=== PATIENT | female | born 1930 ===

== ENCOUNTER 2017-09-06 15:37 | Inpatient (IN) | payer MEDICARE ==
[2017-09-06] MEDS ORDERED: Lidocaine 2% w Epi 1:100,000 Inj IJ ONE (15:56)
--- NOTE | 2017-09-06 15:58 | ED PDOC ---
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 Patient sustained a laceration above the left eyebrow. Denies recollection of event, dizziness, headache, or chest pain with palpitations. Past Medical History Reviewed: Historical Data, Nursing Documentation, Vital Signs Vital Signs: Last Vital Signs Temp 98.0 F 09/06/17 15:40 Pulse 69 09/06/17 15:40 Resp 16 09/06/17 15:40 BP 141/78 09/06/17 15:40 Pulse Ox 100 09/06/17 15:40 - Medical History PMH: CVA (w/residual right-sided facial droop) - Surgical History Surgical History: No Surg Hx - Family History Family History: States: Unknown Family Hx - Social History Current smoker - smoking cessation education provided: No Alcohol: None Drugs: Cannabis - Allergies Allergies/Adverse Reactions: Allergies Allergy/AdvReac Type Severity Reaction Status Date / Time No Known Allergies Allergy Verified 09/21/16 17:44 Review of Systems ROS Statement: Except As Marked, All Systems Reviewed And Found Negative (As per HPI, otherwise negative) Constitutional: Positive for: Other (Head injury) Cardiovascular: Negative for: Chest Pain, Palpitations Skin: Positive for: Other (Laceration to the left eyebrow) Neurological: Negative for: Headache, Dizziness Physical Exam - Reviewed Nursing Documentation Reviewed: Yes Vital Signs Reviewed: Yes - Physical Exam Appears: Positive for: Non-toxic, No Acute Distress Head Exam: Positive for: ATRAUMATIC (3 cm semilunar laceration noted above the left eyebrow and superficial 0.5 cm laceration to the bridge of the nose. No palpable fracture. ) Skin: Positive for: Normal Color, Warm, Dry Eye Exam: Positive for: Normal appearance, EOMI, PERRL Neck: Positive for: Normal, Painless ROM, Supple Cardiovascular/Chest: Positive for: Regular Rate, Rhythm. Negative for: Murmur Respiratory: Positive for: Normal Breath Sounds (Bilaterally). Negative for: Accessory Muscle Use, Respiratory Distress Back: Positive for: Normal Inspection. Negative for: Vertebral Tenderness, Other (no spinal tenderness or deformity noted) Extremity: Positive for: Normal ROM (Full range of motion). Negative for: Tenderness, Deformity Neurologic/Psych: Positive for: Alert, Oriented (x3). Negative for: Motor/ Sensory Deficits (No focal deficits) - Laboratory Results Result Diagrams: 09/06/17 17:00 09/06/17 16:07 - ECG O2 Sat by Pulse Oximetry: 100 (RA) Pulse Ox Interpretation: Normal Medical Decision Making Medical Decision Making: Time: 1552 Initial impression: Head injury status post fall Initial plan: --EKG --CMP --Urine DIP --CBC w/ diff --Chest x-ray --Head CT --Reevaluation Scribe Attestation: Documented by Tiki Thorne, acting as a scribe for Oscar Walter MD. Provider Scribe Attestation: All medical record entries made by the Scribe were at my direction and personally dictated by me. I have reviewed the chart and agree that the record accurately reflects my personal performance of the history, physical exam, medical decision making, and the department course for this patient. I have also personally directed, reviewed, and agree with the discharge instructions and disposition. Disposition - Clinical Impression Clinical Impression: Facial laceration, Syncope, Dehydration - Patient ED Disposition Is Patient to be Admitted: Yes - Disposition Disposition Time: 17:26 Condition: FAIR Forms: [facility] (Brazilian) - Pt Status Changed To: Hospital Disposition Of: Observation - POA Present On Arrival: None Laceration - Laceration Repair No standard instances Wound Length (In cm): 1.18 in Wound Cleansed With: Sterile Saline Anesthesia: Lidocaine 2%, With Epi Wound Examination: Irrigated With Saline, No FB With Wound Exploration Wound Closure: Suture Suture Technique And Material Used: Interrupted, Nylon (5-0 # 11) Wound Complexity: Simple
[2017-09-06 16:19] LABS: BASO % 0.5 % (0.0-2.0); EOS # 0.1 K/uL (0.0-0.7); EOS % 2.3 % (0.0-4.0); HEMOGLOBIN 10.4 g/dL (12.0-16.0); LYMPH # 1.4 K/uL (1.0-4.3); LYMPH % 22.6 % (20.0-40.0); MEAN CELL VOLUME 97.3 fl (81.0-99.0); MEAN CORPUSCULAR HEMOGLOBIN 31.2 pg (27.0-31.0); MEAN PLATELET VOLUME 9.4 fl (7.2-11.7); MONO # 0.4 K/uL (0.0-0.8); MONO % 6.7 % (0.0-10.0); NEUT # 4.1 K/uL (1.8-7.0); NEUT % 67.9 % (50.0-75.0); RBC 3.35 Mil/uL (3.80-5.20); RED CELL DISTRIBUTION WIDTH 13.4 % (11.5-14.5); WHITE BLOOD COUNT 6.1 K/uL (4.8-10.8)
[2017-09-06 16:48] LABS: ALB/GLOB RATIO 1.2 (1.0-2.1); CALCIUM 9.7 mg/dL (8.4-10.2)
--- NOTE | 2017-09-06 16:51 | RAD ---
HISTORY: cough COMPARISON: No prior. FINDINGS: LUNGS: Limited evaluation of the right apex. No active pulmonary disease. PLEURA: No significant pleural effusion identified, no pneumothorax apparent. CARDIOVASCULAR: Atherosclerotic aortic calcifications. Cardiomediastinal silhouette within normal limits OSSEOUS STRUCTURES: Degenerative changes. VISUALIZED UPPER ABDOMEN: Normal. OTHER FINDINGS: None. IMPRESSION: Limited evaluation of the right apex. No active disease.
[2017-09-06] MEDS ORDERED: Sodium Chloride 0.9% 1,000 ML IV STA (16:53)
--- NOTE | 2017-09-06 17:15 | CT ---
PROCEDURE: CT HEAD WITHOUT CONTRAST. HISTORY: r/o bleed COMPARISON: None available. TECHNIQUE: Axial computed tomography images were obtained through the head/brain without intravenous contrast. Radiation dose: Total exam DLP = 809.29 mGy-cm. This CT exam was performed using one or more of the following dose reduction techniques: Automated exposure control, adjustment of the mA and/or kV according to patient size, and/or use of iterative reconstruction technique. FINDINGS: HEMORRHAGE: No intracranial hemorrhage. BRAIN: There are mild chronic microangiopathic changes. There is no mass, mass effect or abnormal extra-axial fluid collection. There is no territorial infarction. There are coarse atherosclerotic calcifications in the cavernous carotid arteries. VENTRICLES: There is mild age-related global parenchymal volume loss and proportionate enlargement of the ventricles and cortical sulci the. CALVARIUM: There is no calvarial fracture or extracranial soft tissue swelling. There is severe hyperostosis frontalis interna. PARANASAL SINUSES: Predominantly clear. MASTOID AIR CELLS: Predominantly clear. OTHER FINDINGS: None. IMPRESSION: 1. No acute intracranial abnormality. 2. Mild chronic microangiopathic changes and mild age-related global parenchymal volume loss.
--- NOTE | 2017-09-06 18:04 | CP.PCM.HP ---
History of Present Illness - History of Present Illness History of Present Illness: CC: syncope, fall HPI: 86 year old female PMH remote CVA, HI with stent placement, Hammonds's Palsy, HTN, Hyperlipidemia presents after an acute unwitnessed fall in her home, with very likely loss of consciousness, however patient is a poor historian and is unable to recall. No bowel or bladder loss. She was found by her neice who heard her fall from the other room. Pt sustained lac above L eye and has broken nose, for which she will follow up as outpatient. In ER, Head CT negative, BUN 54 SCr 1.8, baseline unknown. Patient to be observed overnight on telemetry for arrhythmia, Echo and carotid dopplers in AM, repeat BMP. ROS: Per HPI, all other systems reviewed and neg PMH: remote CVA, HI with stent placement, Hammonds's Palsy, HTN, Hyperlipidemia PSH: denies FH: DM, HTN SH: denies tobacco, ETOH, IVDU NKDA Vitals Reviewed GEN: WDWN, ALERT, COOPERATIVE HEENT: +lac L eye, broken nose, PERRL, EOMI HEART: RRR, +S1S2, NO MRG LUNG: CTAB, NO WRR ABD: SOFT, NT, ND, NO HSM, NO MASSES EXT: NORMAL PEDAL PULSES, GOOD CAPILLARY REFILL NEURO: AAOX3, STRENGTH EQUAL BILATERAL UPPER AND LOWER EXTREMITIES SKIN: WARM, DRY PSYCH: NORMAL MOOD, NORMAL AFFECT LABS Most Recent Lab Values WBC 6.1 K/uL (4.8-10.8) 09/06/17 17:00 RBC 3.35 Mil/uL (3.80-5.20) L 09/06/17 17:00 Hgb 10.4 g/dL (12.0-16.0) L 09/06/17 17:00 Hct 32.6 % (34.0-47.0) L 09/06/17 17:00 MCV 97.3 fl (81.0-99.0) 09/06/17 17:00 MCH 31.2 pg (27.0-31.0) H 09/06/17 17:00 MCHC 32.0 g/dL (33.0-37.0) L 09/06/17 17:00 RDW 13.4 % (11.5-14.5) 09/06/17 17:00 Plt Count 159 K/uL (130-400) 09/06/17 17:00 MPV 9.4 fl (7.2-11.7) 09/06/17 17:00 Neut % (Auto) 67.9 % (50.0-75.0) 09/06/17 17:00 Lymph % (Auto) 22.6 % (20.0-40.0) 09/06/17 17:00 [place] % (Auto) 6.7 % (0.0-10.0) 09/06/17 17:00 Eos % (Auto) 2.3 % (0.0-4.0) 09/06/17 17:00 Baso % (Auto) 0.5 % (0.0-2.0) 09/06/17 17:00 Neut # 4.1 K/uL (1.8-7.0) 09/06/17 17:00 Lymph # 1.4 K/uL (1.0-4.3) 09/06/17 17:00 [place] # 0.4 K/uL (0.0-0.8) 09/06/17 17:00 Eos # 0.1 K/uL (0.0-0.7) 09/06/17 17:00 Baso # 0.0 K/uL (0.0-0.2) 09/06/17 17:00 Sodium 141 mmol/l (132-148) 09/06/17 16:07 Potassium 3.8 MMOL/L (3.6-5.0) 09/06/17 16:07 Chloride 103 mmol/L (98-107) 09/06/17 16:07 Carbon Dioxide 27 mmol/L (22-30) 09/06/17 16:07 Anion Gap 15 (10-20) 09/06/17 16:07 BUN 54 mg/dl (7-17) H 09/06/17 16:07 Creatinine 1.8 mg/dl (0.7-1.2) H 09/06/17 16:07 Est GFR ( Amer) 32 09/06/17 16:07 Est GFR (Non-Af Amer) 27 09/06/17 16:07 Random Glucose 91 mg/dL (65-105) 09/06/17 16:07 Calcium 9.7 mg/dL (8.4-10.2) 09/06/17 16:07 Total Bilirubin 0.4 mg/dl (0.2-1.3) 09/06/17 16:07 AST 20 U/L (14-36) 09/06/17 16:07 ALT 29 U/L (9-52) 09/06/17 16:07 Alkaline Phosphatase 59 U/L (38-126) 09/06/17 16:07 Total Protein 7.4 G/DL (6.3-8.2) 09/06/17 16:07 Albumin 4.0 g/dL (3.5-5.0) 09/06/17 16:07 Globulin 3.3 gm/dL (2.2-3.9) 09/06/17 16:07 Albumin/Globulin Ratio 1.2 (1.0-2.1) 09/06/17 16:[address] NEG no acute changes on EKG MEDICATIONS Sodium Chloride 0.9% 1,000 ml IV 200 mls/hr Acetaminophen [Tylenol 325mg tab] 650 mg PO Q6 PRN Ondansetron [Zofran Inj] 4 mg IVP Q6 PRN Aspirin [Ecotrin] 81 mg PO DAILY Carvedilol [Coreg] 12.5 mg PO BID Enoxaparin [Lovenox] 40 mg SC DAILY Ferrous Sulfate [Feosol] 325 mg PO BID Pravastatin Sodium [Pravachol] 40 mg PO DAILY Valsartan [Diovan] 320 mg PO DAILY ASSESSMENT AND PLAN 86 year old female PMH remote CVA, HI with stent placement, Hammonds's Palsy, HTN, Hyperlipidemia presents after an acute unwitnessed fall in her home, with very likely loss of consciousness, however patient is a poor historian and is unable to recall. No bowel or bladder loss. She was found by her neice who heard her fall from the other room. Pt sustained lac above L eye and has broken nose, for which she will follow up as outpatient. In ER, Head CT negative, BUN 54 SCr 1.8 , baseline unknown. Patient to be observed overnight on telemetry for arrhythmia , Echo and carotid dopplers in AM, repeat BMP. Syncope, fall Lac L eye Broken nose unwitnessed fall, unknown if patient LOC. no bowel, bladder loss ECHO and carotids pending Head CT neg trend cardiac enzymes monitor on tele overnight for arrhythmias follow up with plastic surgery in 2 weeks for broken nose LEONCIO? BUN 54 SCr 1.8 monitor gentle hydration Remove CVA CAD with stent Hammonds's Palsy HTN Hyperlipidemia contine ASA, coreg, pravastatin, diovan monitor HD STABLE VTE PPX cont lovenox Present on Admission - Present on Admission Any Indicators Present on Admission: No Past Patient History - Past Social History Alcohol: None Drugs: Cannabis - CARDIAC Hx Hypertension: Yes - PULMONARY Hx Respiratory Disorders: No - NEUROLOGICAL HX Cerebrovascular Accident: Yes (right facial droop) - PSYCHIATRIC Hx Substance Use: No Meds Allergies/Adverse Reactions: Allergies Allergy/AdvReac Type Severity Reaction Status Date / Time No Known Allergies Allergy Verified 09/21/16 17:44 Results - Vital Signs Recent Vital Signs: Last Vital Signs Temp 98.0 F 09/06/17 15:40 Pulse 76 09/06/17 17:21 Resp 16 09/06/17 17:21 BP 143/81 09/06/17 17:21 Pulse Ox 100 09/06/17 17:26 - Labs Result Diagrams: 09/06/17 17:00 09/06/17 16:07 Labs: Laboratory Results - last 24 hr 09/06/17 09/06/17 16:07 17:00 WBC 6.1 RBC 3.35 L Hgb 10.4 L Hct 32.6 L MCV 97.3 MCH 31.2 H MCHC 32.0 L RDW 13.4 Plt Count 159 MPV 9.4 Neut % (Auto) 67.9 Lymph % (Auto) 22.6 [place] % (Auto) 6.7 Eos % (Auto) 2.3 Baso % (Auto) 0.5 Neut # 4.1 Lymph # 1.4 [place] # 0.4 Eos # 0.1 Baso # 0.0 Sodium 141 Potassium 3.8 Chloride 103 Carbon Dioxide 27 Anion Gap 15 BUN 54 H Creatinine 1.8 H Est GFR ( Amer) 32 Est GFR (Non-Af Amer) 27 Random Glucose 91 Calcium 9.7 Total Bilirubin 0.4 AST 20 ALT 29 Alkaline Phosphatase 59 Total Protein 7.4 Albumin 4.0 Globulin 3.3 Albumin/Globulin Ratio 1.2
[2017-09-06 21:27] LABS: SQUAMOUS EPITHIAL 1 /hpf (0-5); URINE BACTERIA OCC (<OCC); URINE BILIRUBIN NEGATIVE (NEGATIVE); URINE BLOOD NEGATIVE (NEGATIVE); URINE CLARITY CLOUDY (Clear); URINE COLOR YELLOW (YELLOW); URINE GLUCOSE (UA) NEG (Normal); URINE LEUKOCYTE ESTERASE LARGE Leu/uL (Negative); URINE NITRATE NEGATIVE (NEGATIVE); URINE PROTEIN 30 mg/dL (NEGATIVE); URINE UROBILINOGEN 0.2-1.0 mg/dL (0.2-1.0)
[2017-09-07 05:50] LABS: HEMOGLOBIN 9.9 g/dL (12.0-16.0); MEAN CORPUSCULAR HEMOGLOBIN 31.7 pg (27.0-31.0); MEAN CORPUSCULAR HGB CONC 32.7 g/dL (33.0-37.0); RBC 3.11 Mil/uL (3.80-5.20); RED CELL DISTRIBUTION WIDTH 13.3 % (11.5-14.5); WHITE BLOOD COUNT 7.8 K/uL (4.8-10.8)
[2017-09-07 06:07] LABS: CALCIUM 9.2 mg/dL (8.4-10.2)
[2017-09-07 06:09] LABS: TROPONIN I 0.044 ng/mL (0.00-0.120)
[2017-09-07] MEDS ORDERED: Potassium Chloride 10 mEq ER Tab PO ONE (08:41)
[2017-09-07] MEDS: Enoxaparin 30 mg Syringe SC SCH (08:49)
[2017-09-07] MEDS: Pravastatin Sodium 40 MG TAB PO SCH (09:13)
--- NOTE | 2017-09-07 09:45 | CP.PCM.PN ---
Subjective - Date & Time of Evaluation Date of Evaluation: 09/07/17 Time of Evaluation: 09:00 - Subjective Subjective: No fever denies headache no dizziness no CP no SOB no abd pain Objective - Vital Signs/Intake and Output Vital Signs (last 24 hours): Temp Pulse Resp BP Pulse Ox 98.0 F 67 20 107/61 98 09/07/17 08:12 09/07/17 08:50 09/07/17 08:12 09/07/17 08:50 09/07/17 08:12 - Medications Medications: Current Medications Acetaminophen (Tylenol 325mg Tab) 650 mg PO Q6 PRN PRN Reason: Fever >100.4 F Aspirin (Ecotrin) 81 mg PO DAILY [facility] Last Admin: 09/07/17 08:51 Dose: 81 mg Carvedilol (Coreg) 12.5 mg PO BID [facility] Last Admin: 09/07/17 08:50 Dose: 12.5 mg Enoxaparin Sodium (Lovenox) 30 mg SC DAILY [facility] PRN Reason: Protocol Last Admin: 09/07/17 08:49 Dose: 30 mg Ferrous Sulfate (Feosol) 325 mg PO BID [facility] Last Admin: 09/07/17 08:49 Dose: 325 mg Ceftriaxone Sodium 1 gm/ (Sodium Chloride) 100 mls @ 100 mls/hr IVPB DAILY [facility] PRN Reason: Protocol Ondansetron HCl (Zofran Inj) 4 mg IVP Q6 PRN PRN Reason: Nausea/Vomiting Pravastatin Sodium (Pravachol) 40 mg PO DAILY [facility] Valsartan (Diovan) 320 mg PO DAILY [facility] Last Admin: 09/07/17 08:57 Dose: 320 mg - Labs Labs: 09/07/17 04:15 09/07/17 04:15 - Constitutional Appears: No Acute Distress - Head Exam Additional comments: left facial laceration with sutures periorbital hematoma - Eye Exam Eye Exam: Periorbital swelling, Periorbital tenderness, PERRL Pupil Exam: NORMAL ACCOMODATION - ENT Exam ENT Exam: Mucous Membranes Moist, Normal External Ear Exam - Neck Exam Neck Exam: Full ROM. absent: Meningismus - Respiratory Exam Respiratory Exam: NORMAL BREATHING PATTERN. absent: Respiratory Distress - Cardiovascular Exam Cardiovascular Exam: REGULAR RHYTHM, +S1, +S2 - GI/Abdominal Exam GI & Abdominal Exam: Soft, Normal Bowel Sounds. absent: Tenderness - Extremities Exam Extremities Exam: Full ROM, Normal Capillary Refill. absent: Calf Tenderness, Pedal Edema - Back Exam Back Exam: Full ROM. absent: CVA tenderness (L), CVA tenderness (R) - Neurological Exam Neurological Exam: Alert, Awake, CN II-XII Intact, Oriented x3. absent: Motor Sensory Deficit - Psychiatric Exam Psychiatric exam: Normal Affect, Normal Mood - Skin Skin Exam: Dry, Normal Color, Warm Assessment and Plan (1) Syncope Status: Acute (2) Dehydration Status: Acute (3) Facial laceration Status: Acute (4) Head injury Status: Acute (5) CAD (coronary artery disease) Status: Chronic (6) HTN (hypertension) Status: Chronic (7) Hammonds's palsy Status: Chronic (8) CVA (cerebral vascular accident) Status: Chronic - Assessment and Plan (Free Text) Assessment: 86 y/o lady with hx of HTN, CAD s/p stent, CVA , [place] Palsy, was brought in after a Syncopal episode. Sustained Head trauma, laceration left temporal area. (1) Syncope Status: Acute ? sec to Dehydration d/c HTCZ Orthosatic VS CT of head : chronic microangiopathic changes ECHO : normal EF ( suboptimal) Carotid Sono: No significant stenosis Trop negative Physical therapy consult 2. UTI -start IV Ceftriaxone - Urine c/s (3) Dehydration Status: Acute d/c HCTZ IVF hydration (4) Head Injury/Facial laceration Status: Acute Laceration sutured by ED physician d/c sutures in 1 wk (5) CAD (coronary artery disease) Status: Chronic cont ASA, Coreg and Diovan (6) HTN (hypertension) Status: Chronic on Coreg and Diovan (7) Hammonds's palsy Status: Chronic (8) CVA (cerebral vascular accident) Status: Chronic pt on ASA
--- NOTE | 2017-09-07 11:01 | CARD ---
APPROVED REPORT EKG Measurement Heart [id number] <Conclusion> Normal sinus rhythm Non specific ST-T changes
--- NOTE | 2017-09-07 11:36 | US ---
PROCEDURE: Duplex ultrasound of the carotid and vertebral arteries. HISTORY: Syncope COMPARISON: None available. TECHNIQUE: Grayscale and duplex Doppler evaluation of the cervical carotid and vertebral arteries were performed. The common carotid, carotid bifurcations and cervical ICA and proximal ECA were evaluated. The vertebral arteries were evaluated for gross patency and direction. FINDINGS: There are calcified atherosclerotic plaques and intimal thickening in the in the carotid bulbs, internal and external carotid arteries. RIGHT CAROTID ARTERIES: Common Carotid Artery: Normal flow. Maximal flow velocity of 72.5 cm/s. Carotid Bifurcation: Normal. Internal Carotid Artery:Normal. Maximal flow velocity of 119.4 cm/s. External Carotid Artery (proximal branches): Normal. Maximal flow velocity of 116.1 cm/s. ICA/CCA Ratio: 1.6 LEFT CAROTID ARTERIES: Common Carotid Artery: Normal flow. Maximal flow velocity of 87.4 cm/s. Carotid Bifurcation: Normal. Internal Carotid Artery:Normal. Maximal flow velocity of 82.3 cm/s. External Carotid Artery (proximal branches): Normal. Maximal flow velocity of 103.0 cm/s. ICA/CCA Ratio: 0.9 VERTEBRAL ARTERIES: Right Vertebral Artery: Patent. Antegrade flow. Left Vertebral Artery: Patent. Antegrade flow. OTHER FINDINGS: Incidental note is made of thyroid nodules. . IMPRESSION: 1. Less than 50 percent stenosis in the right internal carotid artery. 2. No evidence of hemodynamically significant stenosis in the internal carotid arteries by peak systolic velocity criteria. 3. Patent bilateral vertebral arteries with antegrade flow.
--- NOTE | 2017-09-07 14:41 | CARD ---
APPROVED REPORT EXAM: Two-dimensional and M-mode echocardiogram with Doppler and color Doppler. Other Information Quality : PoorRhythm : INDICATION Syncope 2D DIMENSIONS IVSd0.83 (0.7-1.1cm)LVDd2.42 (3.9-5.9cm) LVOT Diameter2.01 (1.8-2.4cm)PWd1.44 (0.7-1.1cm) IVSs1.09 (0.8-1.2cm)LVDs1.98 (2.5-4.0cm) FS (%) 17.9 %PWs1.29 (0.8-1.2cm) LVEF (%)64.0 (>50%) M-Mode DIMENSIONS Left Atrium (MM)4.14 (2.5-4.0cm)Aortic Root1.94 (2.2-3.7cm) Aortic Cusp Exc.1.12 (1.5-2.0cm) Aortic Valve AoV Peak Iikfbmik659.0cm/sAoV VTI37.0cmAO Peak GR.12mmHg LVOT Peak Kanysexh51.3cm/sLVOT VTI19.78cmAO Mean GR.6mmHg Mitral Valve MV E Rwdghrrj77.4cm/sMV E Peak Gr.97mmHgMV DECEL [id number] MV A Dspngock44.7cm/sMV SEW16yxA/A ratio1.1 MVA (PHT)3.33cm2 TDI Lateral E' Peak V7.25cm/sMedial E' Peak V5.21cm/sE/Lateral E'10.0 E/Medial E'13.9 Tricuspid Valve TR Peak Jfbnaohn730nl/sRAP [id number] Peak Gr.27mmHg [id number] LEFT VENTRICLE The left ventricle is normal in size. There is normal left ventricular wall thickness. The left ventricular function is normal. The left ventricular ejection fraction is - 70%. There is normal LV segmental wall motion. The left ventricular diastolic function is normal. No left ventricle thrombus noted on this study. There is no ventricular septal defect visualized. There is no left ventricular aneurysm. There is no mass noted in the left ventricle. RIGHT VENTRICLE The right ventricle is mildly dilated in some but not all 2D views. There is normal right ventricular wall thickness. The right ventricular systolic function is normal. ATRIA The left atrium size is normal. There is no thrombus suspected in the left atrium. The right atrium is mildly dilated in some but not all views. The interatrial septum is intact with no evidence for an atrial septal defect. AORTIC VALVE The aortic valve is calcific and sclerotic. No aortic regurgitation is present. The aortic valve is not seen well but appears to open well enough on the 2D parasternal long axis view to exclude any significant aortic stenosis. MITRAL VALVE Mitral annular calcification is mild. The mitral valve leaflets are normal. There is no evidence of mitral valve prolapse. There is no mitral valve stenosis. Mitral regurgitation is mild. TRICUSPID VALVE The tricuspid valve is normal in structure. There is mild tricuspid regurgitation. Right ventricular systolic pressure is estimated at 38 mmHg. There is no tricuspid valve prolapse or vegetation. There is no tricuspid valve stenosis. PULMONIC VALVE The pulmonic valve is not well visualized. There is no pulmonic valvular regurgitation. GREAT VESSELS The aortic root is normal in size. The IVC is normal in size and collapses >50% with inspiration. PERICARDIAL EFFUSION The pericardium appears normal. There is no pleural effusion. <Conclusion> The study is of suboptimal quality as the patient was not very echogenic. The left ventricle is normal in size and wall thickness. The left ventricular function is normal. The left ventricular ejection fraction is - 70%. The right ventricle and right atrium are mildly dilated in some but not all 2D views. The aortic valve is not seen very well and is most probably sclerotic and not significantly stenotic. The mitral and tricuspid valves are normal. There is mild regurgitation of the mitral and tricuspid valves. Please correlate clinically.
[2017-09-08 06:16] LABS: HEMOGLOBIN 9.4 g/dL (12.0-16.0); MEAN CELL VOLUME 96.7 fl (81.0-99.0); MEAN CORPUSCULAR HEMOGLOBIN 31.4 pg (27.0-31.0); MEAN CORPUSCULAR HGB CONC 32.5 g/dL (33.0-37.0); RBC 2.99 Mil/uL (3.80-5.20); RED CELL DISTRIBUTION WIDTH 13.3 % (11.5-14.5); WHITE BLOOD COUNT 6.1 K/uL (4.8-10.8)
[2017-09-08 06:32] LABS: CALCIUM 9.1 mg/dL (8.4-10.2)
[2017-09-08] MEDS ORDERED: Potassium Chloride 20 mEq ER Tab PO ONE (08:58)
[2017-09-08] MEDS: Enoxaparin 30 mg Syringe SC SCH (10:16)
[2017-09-08] MEDS: Pravastatin Sodium 40 MG TAB PO SCH (10:18)
[2017-09-08 12:54] LABS: FOLATE 14.7 ng/mL
--- NOTE | 2017-09-08 16:13 | CP.PCM.PN ---
Subjective - Date & Time of Evaluation Date of Evaluation: 09/08/17 Time of Evaluation: 10:00 - Subjective Subjective: denies CP no SOB no GREEN no fever no abd pain fels better no dizziness eval by PT - rec TCU placment for further Rehab Objective - Vital Signs/Intake and Output Vital Signs (last 24 hours): Temp Pulse Resp BP Pulse Ox 97.8 F 73 18 109/64 98 09/08/17 08:39 09/08/17 08:39 09/08/17 08:39 09/08/17 08:39 09/08/17 08:39 - Medications Medications: Current Medications Acetaminophen (Tylenol 325mg Tab) 650 mg PO Q6 PRN PRN Reason: Fever >100.4 F Aspirin (Ecotrin) 81 mg PO DAILY [facility] Last Admin: 09/08/17 10:15 Dose: 81 mg Carvedilol (Coreg) 12.5 mg PO BID [facility] Last Admin: 09/08/17 10:15 Dose: Not Given Enoxaparin Sodium (Lovenox) 30 mg SC DAILY [facility] PRN Reason: Protocol Last Admin: 09/08/17 10:16 Dose: 30 mg Ferrous Sulfate (Feosol) 325 mg PO BID [facility] Last Admin: 09/08/17 10:16 Dose: 325 mg Ceftriaxone Sodium 1 gm/ (Sodium Chloride) 100 mls @ 100 mls/hr IVPB DAILY [facility] PRN Reason: Protocol Last Admin: 09/07/17 13:13 Dose: 100 mls/hr Sodium Chloride (Sodium Chloride 0.9%) 1,000 mls @ 100 mls/hr IV .Q10H [facility] Stop: 09/09/17 16:08 Ondansetron HCl (Zofran Inj) 4 mg IVP Q6 PRN PRN Reason: Nausea/Vomiting Pravastatin Sodium (Pravachol) 40 mg PO DAILY [facility] Last Admin: 09/08/17 10:18 Dose: 40 mg Valsartan (Diovan) 320 mg PO DAILY [facility] Last Admin: 09/08/17 10:15 Dose: Not Given - Labs Labs: 09/08/17 05:00 09/08/17 05:00 - Constitutional Appears: No Acute Distress - Head Exam Additional comments: left facial laceration with sutures periorbital hematoma - Eye Exam Eye Exam: Periorbital swelling, Periorbital tenderness, PERRL Pupil Exam: NORMAL ACCOMODATION - ENT Exam ENT Exam: Mucous Membranes Moist, Normal External Ear Exam noted hematoma tip of tongue - Neck Exam Neck Exam: Full ROM. absent: Meningismus - Respiratory Exam Respiratory Exam: NORMAL BREATHING PATTERN. absent: Respiratory Distress - Cardiovascular Exam Cardiovascular Exam: REGULAR RHYTHM, +S1, +S2 - GI/Abdominal Exam GI & Abdominal Exam: Soft, Normal Bowel Sounds. absent: Tenderness - Extremities Exam Extremities Exam: Full ROM, Normal Capillary Refill. absent: Calf Tenderness, Pedal Edema - Back Exam Back Exam: Full ROM. absent: CVA tenderness (L), CVA tenderness (R) - Neurological Exam Neurological Exam: Alert, Awake, CN II-XII Intact, Oriented x3. absent: Motor Sensory Deficit - Psychiatric Exam Psychiatric exam: Normal Affect, Normal Mood - Skin Skin Exam: Dry, Normal Color, Warm Assessment and Plan (1) Syncope Status: Acute (2) Dehydration Status: Acute (3) Facial laceration Status: Acute (4) Head injury Status: Acute (5) CAD (coronary artery disease) Status: Chronic (6) HTN (hypertension) Status: Chronic (7) Hammonds's palsy Status: Chronic (8) CVA (cerebral vascular accident) Status: Chronic - Assessment and Plan (Free Text) Assessment: 86 y/o lady with hx of HTN, CAD s/p stent, CVA , [place] Palsy, was brought in after a Syncopal episode. Sustained Head trauma, laceration left temporal area. Laceration sutured in ED. CT of head : neg. Pt admitted to Telemetry for further work up. (1) Syncope Status: Acute ? sec to Dehydration r/o Orthostatic Hypotension r/o Seizure ( noted small hematoma tip of tongue - poss bit her tongue) Orthostatic VS noted BP to be low normal - will decrease Coreg and Diovan home dose , d/c HCTZ CT of head : chronic microangiopathic changes ECHO : normal EF ( suboptimal) Carotid Sono: No significant stenosis Trop negative Physical therapy consult- rec TCU placement EEG Neuro consult 2. UTI -start IV Ceftriaxone - Urine c/s pending (3) Dehydration Status: Acute d/c HCTZ IVF hydration 4. LEONCIO prob sec to Dehydration improved with hydration, d/c HCTZ Crea 1.8 on admission now 1.2 5. Head Injury/Facial laceration Status: Acute Laceration sutured by ED physician d/c sutures in 1 wk (6) CAD (coronary artery disease) Status: Chronic cont ASA, Coreg and Diovan (7) HTN (hypertension) Status: Chronic on Coreg and Diovan (8) Hammonds's palsy Status: Chronic (9) CVA (cerebral vascular accident) Status: Chronic pt on ASA check lipids 10. Anemia , chronic prob nutritional pt has poor PO inatke Ensure bid
[2017-09-08] MEDS ORDERED: Sodium Chloride 0.9% 1,000 ML IV SCH (16:15)
[2017-09-09 00:38] VITALS: RESP 18
[2017-09-09 06:02] LABS: IRON 48 ug/dL (37-170)
[2017-09-09 06:12] LABS: TOTAL IRON BINDING CAPACITY 236 ug/dL (250-450)
[2017-09-09 06:21] LABS: CALCIUM 9.3 mg/dL (8.4-10.2)
[2017-09-09 06:25] LABS: % IRON SATURATION 20 % (20-55)
[2017-09-09] MEDS: Enoxaparin 30 mg Syringe SC SCH (09:31)
[2017-09-09] MEDS: Pravastatin Sodium 40 MG TAB PO SCH (09:33)
--- NOTE | 2017-09-09 11:46 | CP.PCM.DIS ---
Provider - Provider Date of Admission: 09/07/17 09:45 Attending physician: Dominga Ayala DO Primary care physician: Dr Schmitt Consults: Neuro: DR townsend Time Spent in preparation of Discharge (in minutes): 25 Diagnosis - Discharge Diagnosis (1) Syncope Status: Acute (2) Dehydration Status: Acute (3) Facial laceration Status: Acute (4) Head injury Status: Acute (5) CAD (coronary artery disease) Status: Chronic (6) HTN (hypertension) Status: Chronic (7) Hammonds's palsy Status: Chronic (8) CVA (cerebral vascular accident) Status: Chronic (9) Gait instability Status: Chronic Hospital Course - Lab Results Lab Results: Micro Results 09/07/17 14:21 Urine,Clean Catch Urine Culture - Final Escherichia Coli Most Recent Lab Values WBC 6.1 K/uL (4.8-10.8) 09/08/17 05:00 RBC 2.99 Mil/uL (3.80-5.20) L 09/08/17 05:00 Hgb 9.4 g/dL (12.0-16.0) L 09/08/17 05:00 Hct 28.9 % (34.0-47.0) L 09/08/17 05:00 MCV 96.7 fl (81.0-99.0) 09/08/17 05:00 MCH 31.4 pg (27.0-31.0) H 09/08/17 05:00 MCHC 32.5 g/dL (33.0-37.0) L 09/08/17 05:00 RDW 13.3 % (11.5-14.5) 09/08/17 05:00 Plt Count 128 K/uL (130-400) L 09/08/17 05:00 MPV 9.4 fl (7.2-11.7) 09/06/17 17:00 Neut % (Auto) 67.9 % (50.0-75.0) 09/06/17 17:00 Lymph % (Auto) 22.6 % (20.0-40.0) 09/06/17 17:00 Andrew % (Auto) 6.7 % (0.0-10.0) 09/06/17 17:00 Eos % (Auto) 2.3 % (0.0-4.0) 09/06/17 17:00 Baso % (Auto) 0.5 % (0.0-2.0) 09/06/17 17:00 Neut # 4.1 K/uL (1.8-7.0) 09/06/17 17:00 Lymph # 1.4 K/uL (1.0-4.3) 09/06/17 17:00 Andrew # 0.4 K/uL (0.0-0.8) 09/06/17 17:00 Eos # 0.1 K/uL (0.0-0.7) 09/06/17 17:00 Baso # 0.0 K/uL (0.0-0.2) 09/06/17 17:00 Sodium 142 mmol/l (132-148) 09/09/17 04:29 Potassium 3.9 MMOL/L (3.6-5.0) 09/09/17 04:29 Chloride 107 mmol/L (98-107) 09/09/17 04:29 Carbon Dioxide 28 mmol/L (22-30) 09/09/17 04:29 Anion Gap 11 (10-20) 09/09/17 04:29 BUN 27 mg/dl (7-17) H 09/09/17 04:29 Creatinine 1.2 mg/dl (0.7-1.2) 09/09/17 04:29 Est GFR ( Amer) 52 09/09/17 04:29 Est GFR (Non-Af Amer) 43 09/09/17 04:29 Random Glucose 73 mg/dL (65-105) 09/09/17 04:29 Calcium 9.3 mg/dL (8.4-10.2) 09/09/17 04:29 Iron 48 ug/dL (37-170) 09/09/17 04:29 TIBC 236 ug/dL (250-450) L 09/09/17 04:29 % Saturation 20 % (20-55) 09/09/17 04:29 Total Bilirubin 0.4 mg/dl (0.2-1.3) 09/06/17 16:07 AST 20 U/L (14-36) 09/06/17 16:07 ALT 29 U/L (9-52) 09/06/17 16:07 Alkaline Phosphatase 59 U/L (38-126) 09/06/17 16:07 Troponin I 0.0440 ng/mL (0.00-0.120) 09/07/17 04:15 Total Protein 7.4 G/DL (6.3-8.2) 09/06/17 16:07 Albumin 4.0 g/dL (3.5-5.0) 09/06/17 16:07 Globulin 3.3 gm/dL (2.2-3.9) 09/06/17 16:07 Albumin/Globulin Ratio 1.2 (1.0-2.1) 09/06/17 16:07 Triglycerides 118 mg/DL (0-149) 09/09/17 04:29 Cholesterol 165 mg/dL (0-199) 09/09/17 04:29 LDL Cholesterol Direct 103 mg/dL (0-129) 09/09/17 04:29 HDL Cholesterol 38 MG/DL (30-70) 09/09/17 04:29 Vitamin B12 527 pg/mL (239-931) 09/08/17 05:00 Folate 14.7 ng/mL 09/08/17 05:00 TSH 3rd Generation 0.87 mIU/ML (0.46-4.68) 09/07/17 04:15 Urine Color Yellow (YELLOW) 09/06/17 20:45 Urine Clarity Cloudy (Clear) 09/06/17 20:45 Urine pH 6.0 (5.0-8.0) 09/06/17 20:45 Ur Specific [place] 1.013 (1.003-1.030) 09/06/17 20:45 Urine Protein 30 mg/dL (NEGATIVE) 09/06/17 20:45 Urine Glucose (UA) Neg mg/dL (Normal) 09/06/17 20:45 Urine Ketones Negative mg/dL (NEGATIVE) 09/06/17 20:45 Urine Blood Negative (NEGATIVE) 09/06/17 20:45 Urine Nitrate Negative (NEGATIVE) 09/06/17 20:45 Urine Bilirubin Negative (NEGATIVE) 09/06/17 20:45 Urine Urobilinogen 0.2-1.0 mg/dL (0.2-1.0) 09/06/17 20:45 Ur Leukocyte Esterase Large [place]/uL (Negative) 09/06/17 20:45 Urine RBC (Auto) 3 /hpf (0-3) 09/06/17 20:45 Urine Microscopic WBC 80 /hpf (0-5) H 09/06/17 20:45 Ur Squamous Epith Cells 1 /hpf (0-5) 09/06/17 20:45 Urine Bacteria Occ (<OCC) H 09/06/17 20:45 - Hospital Course Hospital Course: 86 y/o lady with hx of HTN, CAD s/p stent, CVA , [place] Palsy, was brought in after a Syncopal episode. Sustained Head trauma, laceration left temporal area. Laceration sutured in ED. CT of head : neg. Pt admitted to Telemetry for further work up. Neuro was consulted : EEG normal. PT and OT consulted for gait instability - rec TCU for REhab. Also found to have UTI : IV Ceftriaxone started. (1) Syncope Status: Acute ? sec to Dehydration ( pt was on diuretics and had poor PO intake ) and Orthostatic Hypotension Seizure uled out by neg EEG ( noted small hematoma tip of tongue - poss bit her tongue) noted BP to be low normal - decreased Coreg and Diovan home dose and d/c HCTZ CT of head : chronic microangiopathic changes ECHO : normal EF ( suboptimal) Carotid Sono: No significant stenosis Trop negative Physical therapy consult- rec TCU placement EEG: neg seizure Neuro consulted - cleared by Neuro 2. UTI -started IV Ceftriaxone - Urine c/s : E coli (3) Dehydration Status: Acute d/c HCTZ IVF hydration 4. LEONCIO prob sec to Dehydration improved with hydration, d/c HCTZ Crea 1.8 on admission now 1.2 5. Head Injury/Facial laceration Status: Acute Laceration sutured by ED physician d/c sutures in 1 wk (09/13) (6) CAD (coronary artery disease) Status: Chronic cont ASA, Coreg and Diovan, add statin (7) HTN (hypertension) Status: Chronic on Coreg and Diovan (8) Hammonds's palsy Status: Chronic (9) CVA (cerebral vascular accident), history Status: Chronic pt on ASA start low dose Lipitor 10. Anemia , chronic prob nutritional pt has poor PO intake Ensure bid 11. Gait Instability - PT /OT consulted - rec TCU placement Discharge Exam - Head Exam Additional comments: left temporal laceration with sutures , looks clean , well coaptated - Eye Exam Eye Exam: Periorbital swelling - ENT Exam ENT Exam: Mucous Membranes Moist, Normal External Ear Exam - Neck Exam Neck exam: Full Rom - Respiratory Exam Respiratory Exam: NORMAL BREATHING PATTERN. absent: Respiratory Distress - Cardiovascular Exam Cardiovascular Exam: REGULAR RHYTHM, +S1, +S2 - GI/Abdominal Exam GI & Abdominal Exam: Normal Bowel Sounds, Soft. absent: Tenderness - Extremities Exam Extremities exam: full ROM, normal capillary refill, pedal pulses present - Back Exam Back exam: FULL ROM. absent: CVA tenderness (L), CVA tenderness (R), vertebral tenderness - Neurological Exam Neurological exam: Alert, CN II-XII Intact, Oriented x3, Reflexes Normal - Psychiatric Exam Psychiatric exam: Normal Affect, Normal Mood - Skin Skin Exam: Dry, Normal Color, Warm Discharge Plan - Discharge Medications Prescriptions: cefTRIAXone 1 gm [Rocephin 1 gram IVPB (D5W)] 1 gm IVPB DAILY 5 Days bag - Follow Up Plan Condition: STABLE Disposition: TRANSF TO SNF Instructions: Syncope (DC) Additional Instructions: d/c pt to TCU for Physical and Occupationa therapy and to continue IV antibiotics for UTI Referrals: Luke Schmitt MD [Family Provider] -
--- NOTE | 2017-09-09 12:00 | CP.PCM.PN ---
<Mathew Danielson - Last Filed: 09/09/17 11:57> Subjective - Date & Time of Evaluation Date of Evaluation: 09/09/17 Time of Evaluation: 11:57 - Subjective Subjective: Ms. Lee was seen and examined at the bedside. She is alert, oriented in all spheres. She denies any headache, dizziness, lightheadedness, numbness, nausea, or vomiting. She further states that her facial palsy has been present for two years. She is able to recite her prayers coherently. She remains with left eye ecchymosis and stitches in her left eyebrow. She also has old dried blood in her left nostril. She is able to follow simple commands. EEG was done yesterday.There was no untoward events overnight. Objective - Vital Signs/Intake and Output Vital Signs (last 24 hours): Temp Pulse Resp BP Pulse Ox 99.9 F H 68 18 125/68 99 09/09/17 08:00 09/09/17 08:00 09/09/17 08:00 09/09/17 08:00 09/09/17 08:00 - Medications Medications: Current Medications Acetaminophen (Tylenol 325mg Tab) 650 mg PO Q6 PRN PRN Reason: Fever >100.4 F Aspirin (Ecotrin) 81 mg PO DAILY [facility] Last Admin: 09/09/17 09:32 Dose: 81 mg Carvedilol (Coreg) 3.125 mg PO Q12 [facility] Last Admin: 09/09/17 09:32 Dose: 3.125 mg Enoxaparin Sodium (Lovenox) 30 mg SC DAILY [facility] PRN Reason: Protocol Last Admin: 09/09/17 09:31 Dose: 30 mg Ferrous Sulfate (Feosol) 325 mg PO BID [facility] Last Admin: 09/09/17 09:32 Dose: 325 mg Folic Acid (Folic Acid) 1 mg PO DAILY [facility] Last Admin: 09/09/17 09:31 Dose: 1 mg Ceftriaxone Sodium 1 gm/ (Sodium Chloride) 100 mls @ 100 mls/hr IVPB DAILY [facility] PRN Reason: Protocol Last Admin: 09/09/17 09:30 Dose: 100 mls/hr Ondansetron HCl (Zofran Inj) 4 mg IVP Q6 PRN PRN Reason: Nausea/Vomiting Pravastatin Sodium (Pravachol) 40 mg PO DAILY [facility] Last Admin: 09/09/17 09:33 Dose: 40 mg Valsartan (Diovan) 40 mg PO DAILY [facility] Last Admin: 09/09/17 09:32 Dose: 40 mg - Labs Labs: 09/08/17 05:00 09/09/17 04:29 - Constitutional Appears: No Acute Distress - Head Exam Head Exam: NORMAL INSPECTION - ENT Exam Additional comments: ecchymosis around her left eye and stitches in her left eyebrow. - Neck Exam Neck Exam: Full ROM - Extremities Exam Extremities Exam: Full ROM - Neurological Exam Neurological Exam: Alert, Awake, Oriented x3 Neuro motor strength exam: Left Upper Extremity: 4, Right Upper Extremity: 4, Left Lower Extremity: 4, Right Lower Extremity: 4 Additional comments: Neurological unchanged from previous examination. Assessment and Plan (1) Syncope Assessment & Plan: Case discussed with Dr. Moyer, continue all current medical regimen. EEG results showed no abnormal activity. The patient is clear to be transfer to TICU. Status: Acute <Brisa Moyer - Last Filed: 09/09/17 12:44> Subjective - Subjective Subjective: EEG preliminary report: EEG is normal awake and drowsy. No focal abnormalities noted. no seizures. Objective - Vital Signs/Intake and Output Vital Signs (last 24 hours): Temp Pulse Resp BP Pulse Ox 97.8 F 67 18 116/68 98 09/09/17 12:00 09/09/17 12:00 09/09/17 12:00 09/09/17 12:00 09/09/17 12:00 - Medications Medications: Current Medications Acetaminophen (Tylenol 325mg Tab) 650 mg PO Q6 PRN PRN Reason: Fever >100.4 F Aspirin (Ecotrin) 81 mg PO DAILY [facility] Last Admin: 09/09/17 09:32 Dose: 81 mg Carvedilol (Coreg) 3.125 mg PO Q12 [facility] Last Admin: 09/09/17 09:32 Dose: 3.125 mg Enoxaparin Sodium (Lovenox) 30 mg SC DAILY [facility] PRN Reason: Protocol Last Admin: 09/09/17 09:31 Dose: 30 mg Ferrous Sulfate (Feosol) 325 mg PO BID [facility] Last Admin: 09/09/17 09:32 Dose: 325 mg Folic Acid (Folic Acid) 1 mg PO DAILY [facility] Last Admin: 09/09/17 09:31 Dose: 1 mg Ceftriaxone Sodium 1 gm/ (Sodium Chloride) 100 mls @ 100 mls/hr IVPB DAILY [facility] PRN Reason: Protocol Last Admin: 09/09/17 09:30 Dose: 100 mls/hr Ondansetron HCl (Zofran Inj) 4 mg IVP Q6 PRN PRN Reason: Nausea/Vomiting Pravastatin Sodium (Pravachol) 40 mg PO DAILY [facility] Last Admin: 09/09/17 09:33 Dose: 40 mg Valsartan (Diovan) 40 mg PO DAILY [facility] Last Admin: 09/09/17 09:32 Dose: 40 mg - Labs Labs: 09/08/17 05:00 09/09/17 04:29
[2017-09-09 12:05] VITALS: BP 116/68; PULSE 67; TEMP 97.8; O2SAT 98
== END 2017-09-09 14:03 | DRG 690 ==
LOC: H.ER 15:37 → H.ERHOLD 17:29 → H.TEL 21:43 → OBSVTOIN 09-07 09:45
PROVIDERS: ADMIT Student in an Organized Health Care Education/Training Program; ATTEND Student in an Organized Health Care Education/Training Program
PROC: 0HQ1XZZ Repair Face Skin, External Approach (ICD-10-PCS; principal; 2017-09-07)
DX: N39.0 Urinary tract infection, site not specified (principal); N17.9 Acute kidney failure, unspecified; E86.0 Dehydration; D64.9 Anemia, unspecified; E78.5 Hyperlipidemia, unspecified; S02.2XXA Fracture of nasal bones, initial encounter for closed fracture; G51.0 Bell's palsy; W19.XXXA Unspecified fall, initial encounter; I10 Essential (primary) hypertension; I25.10 Atherosclerotic heart disease of native coronary artery without angina pectoris; Z95.5 Presence of coronary angioplasty implant and graft; I69.392 Facial weakness following cerebral infarction; I95.1 Orthostatic hypotension; S01.112A Laceration without foreign body of left eyelid and periocular area, initial encounter; Y92.009 Unspecified place in unspecified non-institutional (private) residence as the place of occurrence of the external cause; R26.2 Difficulty in walking, not elsewhere classified

== ENCOUNTER 2017-09-09 12:34 | Inpatient (IN) | payer MEDICARE ==
[2017-09-09 14:34] VITALS: BMI 21.2
[2017-09-09 15:52] VITALS: RESP 20
[2017-09-10] MEDS ORDERED: cefTRIAXone IV 1 gm in Dextros 50 ML BAG IVPB SCH (09:00)
[2017-09-10] MEDS: Enoxaparin 30 mg Syringe SC SCH (09:04)
[2017-09-10] MEDS: Pravastatin Sodium 40 MG TAB PO SCH (09:04)
--- NOTE | 2017-09-10 11:20 | CP.PCM.HP ---
History of Present Illness - History of Present Illness History of Present Illness: CC: syncope, fall HPI: 86 year old female PMH remote CVA, [place] with stent placement, Hammonds's Palsy, HTN, Hyperlipidemia presents after an acute unwitnessed fall in her home, with very likely loss of consciousness, however patient is a poor historian and is unable to recall. No bowel or bladder loss. She was found by her neice who heard her fall from the other room. Pt sustained lac above L eye and has broken nose, for which she will follow up as outpatient. In ER, Head CT negative, BUN 54 SCr 1.8, baseline unknown. Patient to be observed overnight on telemetry for arrhythmia, Echo and carotid dopplers in AM, repeat BMP. ROS: Per HPI, all other systems reviewed and neg PMH: remote CVA, [place] with stent placement, Hammonds's Palsy, HTN, Hyperlipidemia PSH: denies FH: DM, HTN SH: denies tobacco, ETOH, IVDU NKDA Vitals Reviewed GEN: WDWN, ALERT, COOPERATIVE HEENT: +lac L eye, broken nose, PERRL, EOMI HEART: RRR, +S1S2, NO MRG LUNG: CTAB, NO WRR ABD: SOFT, NT, ND, NO HSM, NO MASSES EXT: NORMAL PEDAL PULSES, GOOD CAPILLARY REFILL NEURO: AAOX3, STRENGTH EQUAL BILATERAL UPPER AND LOWER EXTREMITIES SKIN: WARM, DRY PSYCH: NORMAL MOOD, NORMAL AFFECT labs reviewed 86 y/o lady with hx of HTN, CAD s/p stent, CVA , [place] Palsy, was brought in after a Syncopal episode. Sustained Head trauma, laceration left temporal area. Laceration sutured in ED. CT of head : neg. Pt admitted to Telemetry for further work up. Neuro was consulted : EEG normal. PT and OT consulted for gait instability - rec TCU for REhab. Also found to have UTI : IV Ceftriaxone started. (1) Syncope Status: Acute ? sec to Dehydration ( pt was on diuretics and had poor PO intake ) and Orthostatic Hypotension Seizure uled out by neg EEG ( noted small hematoma tip of tongue - poss bit her tongue) noted BP to be low normal - decreased Coreg and Diovan home dose and d/c HCTZ CT of head : chronic microangiopathic changes ECHO : normal EF ( suboptimal) Carotid Sono: No significant stenosis Trop negative Physical therapy consult- rec TCU placement EEG: neg seizure Neuro consulted - cleared by Neuro 2. UTI -started IV Ceftriaxone - Urine c/s : E coli (3) Dehydration Status: Acute d/c HCTZ IVF hydration 4. LEONCIO prob sec to Dehydration improved with hydration, d/c HCTZ Crea 1.8 on admission now 1.2 5. Head Injury/Facial laceration Status: Acute Laceration sutured by ED physician d/c sutures in 1 wk (09/13) (6) CAD (coronary artery disease) Status: Chronic cont ASA, Coreg and Diovan, add statin (7) HTN (hypertension) Status: Chronic on Coreg and Diovan (8) Hammonds's palsy Status: Chronic (9) CVA (cerebral vascular accident), history Status: Chronic pt on ASA start low dose Lipitor 10. Anemia , chronic prob nutritional pt has poor PO intake Ensure bid 11. Gait Instability - PT /OT consulted - rec TCU placement Present on Admission - Present on Admission Any Indicators Present on Admission: No Past Patient History - Past Medical History & Family History Past Medical History?: Yes - Past Social History Smoking Status: Never Smoked - CARDIAC Hx Cardiac Disorders: Yes (htn) Hx Hypercholesterolemia: Yes Hx Hypertension: Yes - PULMONARY Hx Respiratory Disorders: No - NEUROLOGICAL HX Cerebrovascular Accident: Yes - HEENT Hx HEENT Problems: No - RENAL Hx Chronic Kidney Disease: No - ENDOCRINE/METABOLIC Hx Endocrine Disorders: No - HEMATOLOGICAL/ONCOLOGICAL Hx Blood Disorders: Yes Hx AIDS: No Hx Anemia: Yes Hx Human Immunodeficiency Virus (HIV): No - INTEGUMENTARY Hx Dermatological Problems: No - MUSCULOSKELETAL/RHEUMATOLOGICAL Hx Falls: Yes - GASTROINTESTINAL Hx Gastrointestinal Disorders: No - GENITOURINARY/GYNECOLOGICAL Hx Genitourinary Disorders: No - PSYCHIATRIC Hx Psychophysiologic Disorder: No Hx Substance Use: No - SURGICAL HISTORY Hx Coronary Stent: Yes (As per patient) - ANESTHESIA Hx Anesthesia: Yes Hx Anesthesia Reactions: No Hx Malignant Hyperthermia: No Meds Allergies/Adverse Reactions: Allergies Allergy/AdvReac Type Severity Reaction Status Date / Time No Known Allergies Allergy Verified 09/09/17 14:32 Results - Vital Signs Recent Vital Signs: Last Vital Signs Temp 97.9 F 09/10/17 08:25 Pulse 68 09/10/17 09:04 Resp 20 09/10/17 08:25 BP 118/60 09/10/17 09:04 Pulse Ox 99 09/10/17 08:25
[2017-09-10] MEDS ORDERED: Petrolatum UD PAK TOP PRN (18:12)
[2017-09-11] MEDS: Enoxaparin 30 mg Syringe SC SCH (08:45)
[2017-09-11] MEDS: Pravastatin Sodium 40 MG TAB PO SCH (08:56)
[2017-09-12] MEDS: Pravastatin Sodium 40 MG TAB PO SCH (08:25)
[2017-09-12] MEDS: Enoxaparin 30 mg Syringe SC SCH (08:26)
--- NOTE | 2017-09-12 10:19 | CP.PCM.PN ---
Subjective - Date & Time of Evaluation Date of Evaluation: 09/12/17 Time of Evaluation: 10:17 - Subjective Subjective: Ms. Ortiz was seen and examined at the bedside. She is alert, oriented . She denies any headache, dizziness, blurred vision, nausea, or vomiting. She has the fading ecchymosis in her left eye area with sutures of her left eyebrow intact with no s/s infection. She is able to follow simple commands. There was no untoward events overnight. Objective - Vital Signs/Intake and Output Vital Signs (last 24 hours): Temp Pulse Resp BP Pulse Ox 97.9 F 69 20 118/68 99 09/12/17 08:01 09/12/17 08:26 09/12/17 08:01 09/12/17 08:26 09/12/17 08:01 - Medications Medications: Current Medications Acetaminophen (Tylenol 325mg Tab) 650 mg PO Q6 PRN PRN Reason: Fever >100.4 F Aspirin (Ecotrin) 81 mg PO DAILY [facility] Last Admin: 09/12/17 08:25 Dose: 81 mg Carvedilol (Coreg) 3.125 mg PO Q12 [facility] Last Admin: 09/12/17 08:26 Dose: 3.125 mg Emollient Ointment (Vaseline Oint) 1 pkt TOP DAILY PRN PRN Reason: Dry skin Enoxaparin Sodium (Lovenox) 30 mg SC DAILY [facility] PRN Reason: Protocol Last Admin: 09/12/17 08:26 Dose: 30 mg Ferrous Sulfate (Feosol) 325 mg PO BID [facility] Last Admin: 09/12/17 08:25 Dose: 325 mg Folic Acid (Folic Acid) 1 mg PO DAILY [facility] Last Admin: 09/12/17 08:25 Dose: 1 mg Ceftriaxone Sodium 1 gm/ (Sodium Chloride) 50 mls @ 50 mls/hr IVPB DAILY [facility] Last Admin: 09/12/17 09:50 Dose: 50 mls/hr Pravastatin Sodium (Pravachol) 40 mg PO DAILY [facility] Last Admin: 09/12/17 08:25 Dose: 40 mg Valsartan (Diovan) 40 mg PO DAILY [facility] Last Admin: 09/12/17 08:25 Dose: 40 mg - Constitutional Appears: No Acute Distress - Head Exam Head Exam: NORMAL INSPECTION - Neurological Exam Neurological Exam: Alert, Awake, Oriented x3 Neuro motor strength exam: Left Upper Extremity: 4, Right Upper Extremity: 4, Left Lower Extremity: 4, Right Lower Extremity: 4 Additional comments: Neurological unchanged from previous examination. Assessment and Plan (1) Syncope Assessment & Plan: Case discussed with Dr. Moyer, continue all current medical, physical, and occupational therapies. There is no new recommendations from neurology. Status: Acute
[2017-09-13] MEDS: Enoxaparin 30 mg Syringe SC SCH (08:36)
[2017-09-13] MEDS: Pravastatin Sodium 40 MG TAB PO SCH (08:36)
--- NOTE | 2017-09-13 11:09 | CP.PCM.PN ---
Subjective - Date & Time of Evaluation Date of Evaluation: 09/13/17 Time of Evaluation: 11:07 - Subjective Subjective: Participating PT well no complaints no cp sob calf tenderness feels improved ambulating well with walker HD stable, NAD Objective - Vital Signs/Intake and Output Vital Signs (last 24 hours): Temp Pulse Resp BP Pulse Ox 98.1 F 66 20 121/64 98 09/13/17 08:04 09/13/17 08:35 09/13/17 08:04 09/13/17 08:35 09/13/17 08:04 - Medications Medications: Current Medications Acetaminophen (Tylenol 325mg Tab) 650 mg PO Q6 PRN PRN Reason: Fever >100.4 F Aspirin (Ecotrin) 81 mg PO DAILY [facility] Last Admin: 09/13/17 08:36 Dose: 81 mg Carvedilol (Coreg) 3.125 mg PO Q12 [facility] Last Admin: 09/13/17 08:35 Dose: 3.125 mg Emollient Ointment (Vaseline Oint) 1 pkt TOP DAILY PRN PRN Reason: Dry skin Ferrous Sulfate (Feosol) 325 mg PO BID [facility] Last Admin: 09/13/17 08:36 Dose: 325 mg Folic Acid (Folic Acid) 1 mg PO DAILY [facility] Last Admin: 09/13/17 08:36 Dose: 1 mg Ceftriaxone Sodium 1 gm/ (Sodium Chloride) 50 mls @ 50 mls/hr IVPB DAILY [facility] Last Admin: 09/12/17 09:50 Dose: 50 mls/hr Pravastatin Sodium (Pravachol) 40 mg PO DAILY [facility] Last Admin: 09/13/17 08:36 Dose: 40 mg Valsartan (Diovan) 40 mg PO DAILY [facility] Last Admin: 09/13/17 08:36 Dose: 40 mg - Constitutional Appears: Non-toxic, No Acute Distress - Head Exam Head Exam: NORMOCEPHALIC Additional comments: SUTURES ABOVE L EYE - ENT Exam ENT Exam: Mucous Membranes Moist, Normal Oropharynx - Respiratory Exam Respiratory Exam: Clear to Ausculation Bilateral, NORMAL BREATHING PATTERN. absent: Rhonchi, Wheezes - Cardiovascular Exam Cardiovascular Exam: RRR, +S1, +S2. absent: Gallop, Rubs - GI/Abdominal Exam GI & Abdominal Exam: Soft, Normal Bowel Sounds. absent: Tenderness, Mass, Organomegaly - Extremities Exam Extremities Exam: Normal Capillary Refill. absent: Calf Tenderness - Back Exam Back Exam: absent: CVA tenderness (L), CVA tenderness (R) - Neurological Exam Neurological Exam: Alert, Awake - Psychiatric Exam Psychiatric exam: Normal Affect, Normal Mood - Skin Skin Exam: Dry, Warm Assessment and Plan - Assessment and Plan (Free Text) Plan: 86 y/o lady with hx of HTN, CAD s/p stent, CVA , [place] Palsy, was brought in after a Syncopal episode. Sustained Head trauma, laceration left temporal area. Laceration sutured in ED. CT of head : neg. Pt admitted to Telemetry for further work up. Neuro was consulted : EEG normal. PT and OT consulted for gait instability - rec TCU for REhab. Also found to have UTI : IV Ceftriaxone started. (1) Syncope Status: Acute ? sec to Dehydration ( pt was on diuretics and had poor PO intake ) and Orthostatic Hypotension Seizure ruled out by neg EEG ( noted small hematoma tip of tongue - poss bit her tongue) noted BP to be low normal - decreased Coreg and Diovan home dose and d/c HCTZ CT of head : chronic microangiopathic changes ECHO : normal EF ( suboptimal) Carotid Sono: No significant stenosis Trop negative Physical therapy consult- rec TCU placement EEG: neg seizure Neuro consulted - cleared by Neuro 2. UTI -started IV Ceftriaxone - Urine c/s : E coli (3) Dehydration Status: Acute d/c HCTZ IVF hydration 4. LEONCIO prob sec to Dehydration improved with hydration, d/c HCTZ Crea 1.8 on admission now 1.2 5. Head Injury/Facial laceration Status: Acute Laceration sutured by ED physician d/c sutures in 1 wk (09/13) (6) CAD (coronary artery disease) Status: Chronic cont ASA, Coreg and Diovan, add statin (7) HTN (hypertension) Status: Chronic on Coreg and Diovan (8) Hammonds's palsy Status: Chronic (9) CVA (cerebral vascular accident), history Status: Chronic pt on ASA start low dose Lipitor 10. Anemia , chronic prob nutritional pt has poor PO intake Ensure bid 11. Gait Instability - PT /OT consulted - rec TCU placement
[2017-09-14] MEDS: Pravastatin Sodium 40 MG TAB PO SCH (08:39)
--- NOTE | 2017-09-14 12:21 | CP.PCM.PN ---
Subjective - Date & Time of Evaluation Date of Evaluation: 09/14/17 Time of Evaluation: 12:19 - Subjective Subjective: Ms. Lee was seen and examined at the bedside. She is alert, oriented. She denies any headache, blurred vision, diplopia, numbness, dizziness, nausea, or vomiting. She remains with fading ecchymosis in her left periorbital area with intact sutures in her left eyebrow. She remains with right facial palsy. There was no untoward events overnight. Objective - Vital Signs/Intake and Output Vital Signs (last 24 hours): Temp Pulse Resp BP Pulse Ox 97.9 F 78 20 125/70 99 09/14/17 08:25 09/14/17 08:38 09/14/17 08:25 09/14/17 08:38 09/14/17 08:25 - Medications Medications: Current Medications Acetaminophen (Tylenol 325mg Tab) 650 mg PO Q6 PRN PRN Reason: Fever >100.4 F Aspirin (Ecotrin) 81 mg PO DAILY [facility] Last Admin: 09/14/17 08:39 Dose: 81 mg Carvedilol (Coreg) 3.125 mg PO Q12 [facility] Last Admin: 09/14/17 08:38 Dose: 3.125 mg Emollient Ointment (Vaseline Oint) 1 pkt TOP DAILY PRN PRN Reason: Dry skin Ferrous Sulfate (Feosol) 325 mg PO BID [facility] Last Admin: 09/14/17 08:39 Dose: 325 mg Folic Acid (Folic Acid) 1 mg PO DAILY [facility] Last Admin: 09/14/17 08:39 Dose: 1 mg Pravastatin Sodium (Pravachol) 40 mg PO DAILY [facility] Last Admin: 09/14/17 08:39 Dose: 40 mg Valsartan (Diovan) 40 mg PO DAILY [facility] Last Admin: 09/14/17 08:39 Dose: 40 mg - Constitutional Appears: No Acute Distress - Head Exam Head Exam: NORMAL INSPECTION - Neurological Exam Neurological Exam: Alert, Awake Neuro motor strength exam: Left Upper Extremity: 4, Right Upper Extremity: 4, Left Lower Extremity: 4, Right Lower Extremity: 4 Additional comments: Neurological unchanged from previous examination. Assessment and Plan (1) Syncope Assessment & Plan: Case discussed with Dr. Moyer, continue all current medical, physical, and occupational therapies. There is no new recommendation from neurology. Status: Acute
[2017-09-15] MEDS: Pravastatin Sodium 40 MG TAB PO SCH (08:08)
--- NOTE | 2017-09-15 10:27 | CP.PCM.PN ---
Subjective - Date & Time of Evaluation Date of Evaluation: 09/15/17 Time of Evaluation: 10:25 - Subjective Subjective: Ms. Lee was seen and examined at the bedside. She is alert, oriented. She denies any headache, blurred vision, nausea, or vomiting. She is able to follow simple commands. She is able to ambulate with walker in steady gait. Objective - Vital Signs/Intake and Output Vital Signs (last 24 hours): Temp Pulse Resp BP Pulse Ox 98.1 F 79 20 120/63 97 09/15/17 08:05 09/15/17 08:07 09/15/17 08:05 09/15/17 08:07 09/15/17 08:05 - Medications Medications: Current Medications Acetaminophen (Tylenol 325mg Tab) 650 mg PO Q6 PRN PRN Reason: Fever >100.4 F Aspirin (Ecotrin) 81 mg PO DAILY [facility] Last Admin: 09/15/17 08:08 Dose: 81 mg Carvedilol (Coreg) 3.125 mg PO Q12 [facility] Last Admin: 09/15/17 08:07 Dose: 3.125 mg Emollient Ointment (Vaseline Oint) 1 pkt TOP DAILY PRN PRN Reason: Dry skin Ferrous Sulfate (Feosol) 325 mg PO BID [facility] Last Admin: 09/15/17 08:08 Dose: 325 mg Folic Acid (Folic Acid) 1 mg PO DAILY [facility] [place] Last Admin: 09/15/17 08:08 Dose: 1 mg Pravastatin Sodium (Pravachol) 40 mg PO DAILY [facility] [place] Last Admin: 09/15/17 08:08 Dose: 40 mg Valsartan (Diovan) 40 mg PO DAILY [facility] [place] Last Admin: 09/15/17 08:08 Dose: 40 mg - Constitutional Appears: No Acute Distress - Head Exam Head Exam: NORMAL INSPECTION - Eye Exam Additional comments: fading ecchymosis of her left eye with left eyebrow sutures intact. Assessment and Plan (1) Syncope Assessment & Plan: Case discussed with Dr. Moyer, continue all current medical, physical, and occupational therapies. Status: Acute
--- NOTE | 2017-09-15 15:03 | CP.PCM.PN ---
Subjective - Date & Time of Evaluation Date of Evaluation: 09/15/17 Time of Evaluation: 10:30 - Subjective Subjective: Pt seen and examined. Denied any complaint. Tolerating therapy. Objective - Vital Signs/Intake and Output Vital Signs (last 24 hours): Temp Pulse Resp BP Pulse Ox 98.1 F 79 20 120/63 97 09/15/17 08:05 09/15/17 08:07 09/15/17 08:05 09/15/17 08:07 09/15/17 08:05 - Medications Medications: Current Medications Acetaminophen (Tylenol 325mg Tab) 650 mg PO Q6 PRN PRN Reason: Fever >100.4 F Aspirin (Ecotrin) 81 mg PO DAILY [facility] Last Admin: 09/15/17 08:08 Dose: 81 mg Carvedilol (Coreg) 3.125 mg PO Q12 [facility] Last Admin: 09/15/17 08:07 Dose: 3.125 mg Emollient Ointment (Vaseline Oint) 1 pkt TOP DAILY PRN PRN Reason: Dry skin Ferrous Sulfate (Feosol) 325 mg PO BID [facility] Last Admin: 09/15/17 08:08 Dose: 325 mg Folic Acid (Folic Acid) 1 mg PO DAILY [facility] Last Admin: 09/15/17 08:08 Dose: 1 mg Pravastatin Sodium (Pravachol) 40 mg PO DAILY [facility] Last Admin: 09/15/17 08:08 Dose: 40 mg Valsartan (Diovan) 40 mg PO DAILY [facility] Last Admin: 09/15/17 08:08 Dose: 40 mg - Constitutional Appears: No Acute Distress - Head Exam Head Exam: ATRAUMATIC - Eye Exam Eye Exam: absent: Scleral icterus - ENT Exam ENT Exam: Mucous Membranes Moist - Neck Exam Neck Exam: absent: Meningismus - Respiratory Exam Respiratory Exam: absent: Rhonchi, Wheezes, Respiratory Distress - Cardiovascular Exam Cardiovascular Exam: REGULAR RHYTHM, +S1, +S2 - GI/Abdominal Exam GI & Abdominal Exam: Soft. absent: Tenderness - Rectal Exam Rectal Exam: Deferred - Neurological Exam Neurological Exam: Alert, Oriented x3 - Psychiatric Exam Psychiatric exam: Normal Affect - Skin Skin Exam: Dry, Intact Assessment and Plan - Assessment and Plan (Free Text) Assessment: 86 yo female with history of HTN, CAD, CVA and Hammonds's Palsy had head injury after a fall sustaining laceration on left temporal area on 09/06/17. She was admitted and monitored in telemetry. Works up including CT scan and EEG were negative. PT was consulted and she was advised admission to TCU for correction of her gait instability. 1. Head Injury it was an unwitness fall and patient could not confirm if she has loss of consciousness continue PT for gait instability fall could also be secondary to orthostatic hypotension and dehydration adjust dose of Coreg and Diovan HCTZ was DC CT of head was negative ECHO: EF normal Carotid sono: no stenosis EEG no seizure activity Troponins negative for ischemic events 2. Dehydration corrected with IV hydration HCTZ DC'd repeat BMP in am 3. CAD continue ASA, Coreg, Diovan and statin 4. HTN BP stable continue Diovan and Coreg 5. History of CVA continue ASA and low dose Lipitor
[2017-09-16 08:56] VITALS: BP 112/67; PULSE 71; TEMP 97.7; O2SAT 98
[2017-09-16] MEDS: Pravastatin Sodium 40 MG TAB PO SCH (09:00)
--- NOTE | 2017-09-16 12:01 | CP.PCM.PN ---
Subjective - Date & Time of Evaluation Date of Evaluation: 09/16/17 Time of Evaluation: 11:59 - Subjective Subjective: Ms. Lee was seen and examined at the bedside. She remains alert, oriented and speaks mainly Setswana. She is able to answer questions appropriately and follow simple commands. Her ecchymosis of her left eye is healing and left eyebrow sutures are inatct with no s/s infection. She is able to ambulate around her room with the use of walker in stable gait. There was no untoward events overnight. Objective - Vital Signs/Intake and Output Vital Signs (last 24 hours): Temp Pulse Resp BP Pulse Ox 97.7 F 71 20 112/67 98 09/16/17 08:55 09/16/17 09:00 09/16/17 08:55 09/16/17 09:00 09/16/17 08:55 - Medications Medications: Current Medications Acetaminophen (Tylenol 325mg Tab) 650 mg PO Q6 PRN PRN Reason: Fever >100.4 F Aspirin (Ecotrin) 81 mg PO DAILY [facility] Last Admin: 09/16/17 09:00 Dose: 81 mg Carvedilol (Coreg) 3.125 mg PO Q12 [facility] Last Admin: 09/16/17 09:00 Dose: 3.125 mg Emollient Ointment (Vaseline Oint) 1 pkt TOP DAILY PRN PRN Reason: Dry skin Last Admin: 09/15/17 22:28 Dose: 1 pkt Ferrous Sulfate (Feosol) 325 mg PO BID [facility] Last Admin: 09/16/17 09:00 Dose: 325 mg Folic Acid (Folic Acid) 1 mg PO DAILY [facility] Last Admin: 09/16/17 09:00 Dose: 1 mg Pravastatin Sodium (Pravachol) 40 mg PO DAILY [facility] Last Admin: 09/16/17 09:00 Dose: 40 mg Valsartan (Diovan) 40 mg PO DAILY [facility] Last Admin: 09/16/17 09:00 Dose: 40 mg - Constitutional Appears: No Acute Distress - Head Exam Head Exam: NORMAL INSPECTION - Neurological Exam Neurological Exam: Alert, Awake, Oriented x3 Neuro motor strength exam: Left Upper Extremity: 5, Right Upper Extremity: 5, Left Lower Extremity: 5, Right Lower Extremity: 5 Additional comments: Neurological unchanged from previous examination. Assessment and Plan (1) Syncope Assessment & Plan: Case discussed with Dr. Moyer, continue all current medical, physical, and occupational therapies. There is no new recommendations from neurology. Status: Acute
--- NOTE | 2017-09-16 17:09 | CP.PCM.DIS ---
Provider - Provider Date of Admission: 09/09/17 14:48 Attending physician: Karuna Drake MD Primary care physician: Dr. Luke Schmitt Consults: Dr. Moyer- neurology Dr. Dunlap- physiatry Physical therapy Occupational therapy Time Spent in preparation of Discharge (in minutes): 40 Hospital Course - Hospital Course Hospital Course: 86 y/o lady with hx of HTN, CAD s/p stent, CVA , [place] Palsy, was brought in after a Syncopal episode on 09/06/2017. Sustained Head trauma, laceration left temporal area. Laceration sutured in ED. CT of head : neg. Pt admitted to Telemetry for further work up. At that time, Neuro was consulted : EEG normal. PT and OT consulted for gait instability - rec TCU for rehabilitation Also found to have UTI : IV Ceftriaxone started. Patient was discharged to TCU on 09/09/2017. She had an uncomplicated stay and cooperated with PT/OT. She was seen by physiatry, Dr. Danielson, and Dr. Moyer, neurology (no new recommendations). Her gait improved and she is now being discharged to home in stable condition. Of note, almost all of the sutures of the left eyebrow were removed before discharge. However, there are 2-3 sutures in the middle of the laceration that were not ready to be removed. The patient is to follow up early next week with her plastic surgeon and can have the final sutures removed there. (1) Syncope Status: Resolved ? sec to Dehydration ( pt was on diuretics and had poor PO intake) and Orthostatic Hypotension Seizure ruled out by neg EEG ( noted small hematoma tip of tongue - poss bit her tongue) noted BP to be low normal - decreased Coreg and Diovan home dose and d/c HCTZ CT of head : chronic microangiopathic changes ECHO : normal EF ( suboptimal) Carotid Sono: No significant stenosis Trop negative Physical therapy/Occupational therapy while in TCU. EEG: neg seizure Neuro consulted, Dr. Moyre - cleared by Neuro 2. UTI- resolved -Completed course of IV Ceftriaxone - Urine c/s : E coli (3) Dehydration Status: Acute d/c HCTZ IVF hydration 4. LEONCIO prob sec to Dehydration improved with hydration, d/c HCTZ Crea 1.8 on admission now 1.2 5. Head Injury/Facial laceration Status: Acute Laceration sutured by ED physician See note above regarding suture removal- patient to f/u with plastic surgeon early next week. (6) CAD (coronary artery disease) Status: Chronic cont ASA, Coreg and Diovan, add statin (7) HTN (hypertension) Status: Chronic on Coreg and Diovan (8) Hammonds's palsy Status: Chronic (9) CVA (cerebral vascular accident), history Status: Chronic pt on ASA start low dose Lipitor 10. Anemia , chronic prob nutritional pt has poor PO intake- improved Discharge Exam - Additional Findings Additional findings: Physical exam: Constitutional- cooperative, awake, alert Head- NCAT, PERRL Eye- PERRL, EOMI. + Left eye laceration healing well. ENT- normal exam, MMM. Neck- normal inspection, supple, no JVD Respiratory- CTAB, no wheezes rales rhonchi Cardiovascular- RRR, +S1, +S2 no MRG GI/Abdominal- normal bowel sounds, soft, no mass, no hsm Skin- warm, dry Extremities Exam- normal capillary refill, normal inspection Neurological Exam- alert, awake, oriented Psych- normal mood, normal affect Discharge Plan - Discharge Medications Prescriptions: Carvedilol [Coreg] 3.125 mg PO Q12 #60 tab Ferrous Sulfate [Feosol] 325 mg PO BID #60 tab Folic Acid 1 mg PO DAILY #30 tab Pravastatin Sodium [Pravachol] 40 mg PO DAILY #30 tab Valsartan [Diovan] 40 mg PO DAILY #30 tab - Follow Up Plan Condition: GOOD Disposition: HOME/ ROUTINE Instructions: Urinary Tract Infection in Women (DC), Syncope (DC), Fall Prevention (DC) Additional Instructions: followup with PMD Dr. Schmitt in one week, call for appointment [phone]
== END 2017-09-16 16:00 | disposition home or self-care (01) | DRG 92 ==
LOC: H.TCU 14:48
PROVIDERS: ADMIT Internal Medicine; ATTEND Internal Medicine
PROC: F07Z9FZ Gait Training/Functional Ambulation Treatment using Assistive, Adaptive, Supportive or Protective Equipment (ICD-10-PCS; principal; 2017-09-09)
PROC: F07L6FZ Therapeutic Exercise Treatment of Musculoskeletal System - Lower Back / Lower Extremity using Assistive, Adaptive, Supportive or Protective Equipment (ICD-10-PCS; 2017-09-09)
PROC: F07K6FZ Therapeutic Exercise Treatment of Musculoskeletal System - Upper Back / Upper Extremity using Assistive, Adaptive, Supportive or Protective Equipment (ICD-10-PCS; 2017-09-09)
DX: R26.9 Unspecified abnormalities of gait and mobility (principal); N39.0 Urinary tract infection, site not specified; N17.9 Acute kidney failure, unspecified; E86.0 Dehydration; D64.9 Anemia, unspecified; G51.0 Bell's palsy; I10 Essential (primary) hypertension; I25.10 Atherosclerotic heart disease of native coronary artery without angina pectoris; B96.20 Unspecified Escherichia coli [E. coli] as the cause of diseases classified elsewhere; Z95.5 Presence of coronary angioplasty implant and graft; Z86.73 Personal history of transient ischemic attack (TIA), and cerebral infarction without residual deficits; E78.5 Hyperlipidemia, unspecified; I25.2 Old myocardial infarction